=== PATIENT | female | born 1955 | race Caucasian/White ===

== ENCOUNTER 2018-10-04 22:39 | Emergency (ER) | payer MEDICAID ==
[~2018-10-04] VITALS: Ht 154.9 cm; Wt 59.3 kg
[~2018-10-04 22:39] MED LIST: AMLO5TAB7 PO; DIPH25CA61 PO; ENOX40SY4 SQ; GUAI237S4 PO; LISI-170 PO; ONDA4TAB7 PO; OXYC15TA75 PO; PANT40TA3 PO; SENN-29 PO; TEMA15CA6 PO; TIOT18CA INH; VANC1.5P IV
[2018-10-05 01:00] VITALS: BP 186/103
== END 2018-10-05 01:26 | disposition home or self-care (01) ==
LOC: ED 23:06
DX: J02.9 Acute pharyngitis, unspecified (principal); B97.89 Other viral agents as the cause of diseases classified elsewhere; I10 Essential (primary) hypertension; F17.200 Nicotine dependence, unspecified, uncomplicated
CPT/HCPCS: 71046; 93005; 99284; 99406

== ENCOUNTER 2019-01-14 18:36 | Emergency (ER) | payer MEDICAID ==
[~2019-01-14] VITALS: Ht 154.9 cm; Wt 59.9 kg
[~2019-01-14 18:36] MED LIST changes: +AMLO-150 PO; -AMLO5TAB7 PO
[2019-01-14 18:46] VITALS: BP 180/102
[2019-01-14] MEDS ORDERED: LIDOCAINE-MPF 1%, 5ML ONE (18:56)
[2019-01-14] MEDS ORDERED: LIDOCAINE 1%, 10ML INFIL ONE (19:00)
--- NOTE | 2019-01-14 19:07 | NUR ---
LIDO GIVEN TO PROVIDER.
--- NOTE | 2019-01-14 19:07 | NUR ---
PT HERE FOR RIGHT NECK BUMPS THAT APPEAR TO BE AN ABCESS. PT DENIES ANY TRUAMA. REPORTS BUMPS HAVE BEEN THERE FOR A WHILE BUT ARE NOW CAUSING HER PAIN.
[2019-01-14] MEDS ORDERED: OXYcodone/APAP 5/325MG TABLET ONE (19:34)
--- NOTE | 2019-01-14 19:39 | NUR ---
pt medicated for pain.
[2019-01-14] MEDS ORDERED: OXYcodone/APAP 5/325MG TABLET PO ONE (20:00)
--- NOTE | 2019-01-14 20:43 | NUR ---
PT BACK FROM US
[2019-01-14] MEDS ORDERED: CEPHALEXIN 500 MG CAPSULE ONE (21:43)
--- NOTE | 2019-01-14 21:44 | NUR ---
Patient/Caregiver given discharge instructions and they have confirmed that they understand the instructions. Patient ambulatory with steady gait.
[2019-01-14] MEDS ORDERED: CEPHALEXIN 500 MG CAPSULE PO ONE (22:00)
== END 2019-01-14 21:51 | disposition home or self-care (01) ==
LOC: ED 21:45
DX: L02.11 Cutaneous abscess of neck (principal); I10 Essential (primary) hypertension; F17.200 Nicotine dependence, unspecified, uncomplicated; Z90.721 Acquired absence of ovaries, unilateral
CPT/HCPCS: 76536; 99284

== ENCOUNTER 2019-06-18 10:52 | Emergency (ER) | payer MEDICAID ==
[~2019-06-18] VITALS: Ht 154.9 cm; Wt 59.0 kg
[2019-06-18] MEDS ORDERED: LISI-420 PO (11:20)
[2019-06-18 11:30] LABS: BASOPHILS # (AUTO) 0.02 x10^3/uL (0-0.1); BASOPHILS % (AUTO) 0 % (0-1); EOSINOPHILS # (AUTO) 0.14 x10^3/uL (0-0.4); EOSINOPHILS % (AUTO) 2 % (1-7); LYMPHOCYTES # (AUTO) 1.54 x10^3/uL (1-3.4); LYMPHOCYTES % (AUTO) 24 % (22-44); MD NO; MEAN CORPUSCULAR HEMOGLOBIN 28.2 pg (27.0-34.8); MEAN CORPUSCULAR VOLUME 85.6 fL (80-100); MEAN PLATELET VOLUME 8.4 fL (7.4-10.4); MONOCYTES # (AUTO) 0.42 x10^3/uL (0.2-0.8); MONOCYTES % (AUTO) 7 % (2-9); NEUTROPHILS # (AUTO) 4.31 x10^3/uL (1.8-6.8); NEUTROPHILS % (AUTO) 67 % (42-75); PLATELET COUNT 337 x10^3/uL (130-400); RED BLOOD COUNT 5.61 x10^6/uL (3.82-5.3); RED CELL DISTRIBUTION WIDTH 12.9 % (9.6-15.2)
[2019-06-18 12:08] LABS: ALBUMIN 3.7 g/dL (3.4-5.0)
[2019-06-18 12:09] LABS: MICROSCOPIC INDICATED
[2019-06-18 12:12] LABS: ALANINE AMINOTRANSFERASE 26 U/L (12-78); ALKALINE PHOSPHATASE 113 U/L (45-117); BILIRUBIN,TOTAL 0.5 mg/dL (0.2-1.0); CALCIUM 8.9 mg/dL (8.5-10.1); TOTAL PROTEIN 7.3 g/dL (6.4-8.2)
[2019-06-18 12:17] LABS: CHLORIDE 108 mmol/L (98-107)
[2019-06-18 12:18] LABS: ANION GAP 5 mmol/L (5-15)
[2019-06-18 12:24] LABS: CULTURE INDICATED? NO
--- NOTE | 2019-06-18 12:40 | NUR ---
Patient off to CT scan
--- NOTE | 2019-06-18 12:59 | NUR ---
Pt back from Ct; napping; easily arousable.
[2019-06-18 13:00] VITALS: BP 156/87
== END 2019-06-18 13:35 | disposition home or self-care (01) ==
LOC: ED 11:58
DX: R10.32 Left lower quadrant pain (principal); R10.31 Right lower quadrant pain; F17.210 Nicotine dependence, cigarettes, uncomplicated; I10 Essential (primary) hypertension
CPT/HCPCS: 36415; 74177; 80053; 81001; 83690; 85025; 99284